=== PATIENT | female | born 1945 | race Two or more races ===

== ENCOUNTER 2022-03-31 10:33 | Outpatient (REF) | payer MEDICARE, MEDICAID, SELFPAY ==
--- NOTE | ~2022-03-31 | FL_ITS ---
EXAMINATION: FL BARIUM SWALLOW CLINICAL INFORMATION: Dysphagia. COMPARISON: None TECHNIQUE: Barium swallow examination is performed using fluoroscopic evaluation in addition to multiple fluoroscopic spot views. The patient is imaged both upright and prone and using both thick and thin sulfate along with effervescent granules. Fluoroscopy time: 1.8 minutes DAP: 3.43 Gy-cm2 Images: 76 FINDINGS: Following oral administration of thin barium and effervescent granules, there is normal propagation of bolus from the oral cavity through the pharynx, esophagus into stomach without any evidence of obstruction, narrowing or stricture. On oral administration of thick barium paste, there is no filling defect or obstruction seen in the oropharynx. There is no mass seen in the pharynx or esophagus. On oral administration of barium-coated turkey, there is normal oral mastication with propagation of bolus from the oral cavity through the pharynx, esophagus into stomach. FL/FL barium swallow IMPRESSION: Unremarkable barium swallow exam in upright view. Especially no mass, obstruction or narrowing seen in the oropharynx or pharynx.
== END 2022-03-31 10:34 | disposition home or self-care (01) ==
LOC: HO.XRAY 10:33
PROVIDERS: PCP Internal Medicine; Visit Provider Otolaryngology
DX: R13.10 Dysphagia, unspecified (principal)
CPT/HCPCS: 74220